=== PATIENT | male | born 1990 | race Caucasian/White ===

== ENCOUNTER → 2023-07-21 | Outpatient (REF) | payer OTHER, MEDICAID ==
[2023-07-21 12:54] LABS: ALBUMIN 3.8 G/DL (3.2-5.2); ALKALINE PHOSPHATASE 39 U/L (46-116); ALT/SGPT 45 U/L (7.0-40); AST/SGOT 15 U/L (<34); BILIRUBIN,TOTAL 0.4 MG/DL (0.3-1.2); BLOOD UREA NITROGEN 20 MG/DL (9-23); CALCIUM LEVEL 9.2 MG/DL (8.5-10.1); CARBON DIOXIDE LEVEL 26 MMOL/L (20-31); CHLORIDE LEVEL 104 MMOL/L (98-107); CHOLESTEROL LEVEL 143 MG/DL (<200); CREATININE FOR GFR 0.91 MG/DL (0.70-1.30); GLOMERULAR FILTRATION RATE > 60.0 (>60); GLUCOSE, FASTING 97 MG/DL (60-100); POTASSIUM SERUM 4.2 MMOL/L (3.5-5.1); SODIUM LEVEL 137 MMOL/L (136-145); THYROID STIMULATING HORMONE 2.372 uIU/ML (0.55-4.78); TOTAL 25(OH) VITAMIN D 25.3 NG/ML (20.0-100.0); TOTAL PROTEIN 6.6 G/DL (5.7-8.2); TRIGLYCERIDES LEVEL 92 MG/DL (<150)
[2023-07-21 13:12] LABS: HEMOGLOBIN A1c 5.2 % (4.0-6.0)
[2023-07-21 13:40] LABS: CHOLESTEROL RISK RATIO 3.88 (<5); HDL CHOLESTEROL 36.8 MG/DL (>40); LDL CHOLESTEROL 87.8 MG/DL (<100); NON-HDL-C 106.2 MG/DL
== END ==
LOC: M LABDRAWC 11:30
PROVIDERS: ATTEND Physician Assistant
DX: E55.9 Vitamin D deficiency, unspecified (principal); R73.09 Other abnormal glucose

== ENCOUNTER → 2023-08-02 | Outpatient (REF) | payer OTHER, MEDICAID, BC ==
[2023-08-02 18:48] LABS: RSV AMPLIFICATION NEGATIVE (NEGATIVE)
== END ==
LOC: M SFHCLERA 17:00
PROVIDERS: ATTEND Physician Assistant
DX: J22 Unspecified acute lower respiratory infection (principal)

== ENCOUNTER → 2023-11-10 | Outpatient (REF) | payer OTHER, MEDICAID ==
[2023-11-10 12:37] LABS: HEMOGLOBIN A1c 5.2 % (4.0-6.0)
[2023-11-10 12:43] LABS: ALBUMIN 3.7 G/DL (3.2-5.2); ALKALINE PHOSPHATASE 39 U/L (46-116); ALT/SGPT 48 U/L (7.0-40); AST/SGOT 19 U/L (<34); BILIRUBIN,TOTAL 0.4 MG/DL (0.3-1.2); BLOOD UREA NITROGEN 19 MG/DL (9-23); CALCIUM LEVEL 8.9 MG/DL (8.5-10.1); CARBON DIOXIDE LEVEL 26 MMOL/L (20-31); CHLORIDE LEVEL 108 MMOL/L (98-107); CHOLESTEROL LEVEL 131 MG/DL (<200); CHOLESTEROL RISK RATIO 4.15 (<5); CREATININE FOR GFR 0.98 MG/DL (0.70-1.30); GLOMERULAR FILTRATION RATE > 60.0 (>60); GLUCOSE, FASTING 100 MG/DL (60-100); HDL CHOLESTEROL 31.5 MG/DL (>40); LDL CHOLESTEROL 76.9 MG/DL (<100); NON-HDL-C 99.5 MG/DL; POTASSIUM SERUM 4.2 MMOL/L (3.5-5.1); SODIUM LEVEL 138 MMOL/L (136-145); TOTAL PROTEIN 6.5 G/DL (5.7-8.2); TRIGLYCERIDES LEVEL 113 MG/DL (<150)
[2023-11-10 12:44] LABS: PROLACTIN 19.97 NG/ML (2.1-17.7); THYROID STIMULATING HORMONE 2.775 uIU/ML (0.55-4.78)
[2023-11-10 12:45] LABS: TOTAL 25(OH) VITAMIN D 16.9 NG/ML (20.0-100.0)
== END ==
LOC: M SFHCCLAY 08:35
PROVIDERS: ATTEND Physician Assistant
DX: I10 Essential (primary) hypertension (principal); E55.9 Vitamin D deficiency, unspecified; R74.8 Abnormal levels of other serum enzymes; R63.5 Abnormal weight gain; R73.09 Other abnormal glucose

== ENCOUNTER → 2023-11-11 | Outpatient (REF) | payer OTHER, MEDICAID | LOC: M SFHCLERA 16:43 | PROVIDERS: ATTEND Physician Assistant | DX: R74.8 Abnormal levels of other serum enzymes (principal); R63.5 Abnormal weight gain; I10 Essential (primary) hypertension; E55.9 Vitamin D deficiency, unspecified; R73.09 Other abnormal glucose ==

== ENCOUNTER → 2024-02-10 | Outpatient (REF) | payer BC, MEDICAID | LOC: M SFHCCLAY 09:22 | PROVIDERS: ATTEND Physician Assistant | DX: E22.1 Hyperprolactinemia (principal) ==

== ENCOUNTER → 2024-05-29 | Outpatient (REF) | payer BC, MEDICAID ==
[2024-05-29 17:50] LABS: ALBUMIN 3.7 G/DL (3.2-5.2); ALKALINE PHOSPHATASE 49 U/L (46-116); ALT/SGPT 46 U/L (7.0-40); AST/SGOT 17 U/L (<34); BILIRUBIN,TOTAL 0.2 MG/DL (0.3-1.2); BLOOD UREA NITROGEN 15 MG/DL (9-23); CALCIUM LEVEL 9.7 MG/DL (8.5-10.1); CARBON DIOXIDE LEVEL 28 MMOL/L (20-31); CHLORIDE LEVEL 105 MMOL/L (98-107); CHOLESTEROL LEVEL 145 MG/DL (<200); CHOLESTEROL RISK RATIO 4.48 (<5); CREATININE FOR GFR 0.82 MG/DL (0.70-1.30); GLOMERULAR FILTRATION RATE > 60.0 (>60); GLUCOSE, FASTING 108 MG/DL (60-100); HDL CHOLESTEROL 32.3 MG/DL (>40); LDL CHOLESTEROL 85.5 MG/DL (<100); NON-HDL-C 112.7 MG/DL; POTASSIUM SERUM 4.2 MMOL/L (3.5-5.1); SODIUM LEVEL 139 MMOL/L (136-145); TOTAL PROTEIN 6.9 G/DL (5.7-8.2); TRIGLYCERIDES LEVEL 136 MG/DL (<150)
[2024-05-29 17:52] LABS: FREE T4 1.26 NG/DL (0.89-1.76)
[2024-05-29 18:43] LABS: HEMOGLOBIN A1c 5.2 % (4.0-6.0)
== END ==
LOC: M SFHCCLAY 14:21
PROVIDERS: ATTEND Nurse Practitioner Family
DX: E22.1 Hyperprolactinemia (principal); G47.33 Obstructive sleep apnea (adult) (pediatric); I10 Essential (primary) hypertension; E66.01 Morbid (severe) obesity due to excess calories; E55.9 Vitamin D deficiency, unspecified; H66.91 Otitis media, unspecified, right ear